=== PATIENT | male | born 1995 | race Caucasian/White ===

== ENCOUNTER 2016-12-29 14:58 | Emergency (ER) | payer OTHER ==
--- NOTE | 2016-12-29 15:42 | EDDOCDS ---
Physician Documentation [facility] Name: Aurelio Moseley Age: 21 yrs Sex: Male : 1995 Arrival Date: 12/29/2016 Time: 14:58 Bed I6 Private MD: NO PRIMARY PHYSICIAN, . Disposition: 12/29/16 15:35 Discharged to Home/Self Care. Impression: Dislocation and sprain of joints and ligaments of shoulder girdle - LEFT shoulder. - Condition is Stable. - Discharge Instructions: Shoulder Dislocation, [id number]. - Medication Reconciliation, Local Pharmacy Hours form. - Follow up: Orthopaedics, [facility]; When: Call to arrange an appointment; Reason: Further diagnostic work-up, Recheck today's complaints, Continuance of care. - Problem is new. - Symptoms have improved. Historical: - Allergies: PENICILLINS; - Home Meds: 1. none - PMHx: shoulder dislocation; - PSHx: Tubes in ears; right knee surgery; lumbar tumor removed; - Social history: Smoking status: Chewing Tobacco Patient/guardian denies using alcohol, street drugs, No barriers to communication noted, The patient speaks fluent Welsh, Speaks appropriately for age. - : The pt / caregiver states he / she is not on anticoagulants. Home medication list is obtained from the patient. - Exposure Risk Screening:: None identified. Vital Signs: 12/29 15:00 BP 158 / 88; Pulse 86; Resp 17; Temp 97.8(T); Pulse Ox 100% on R/A; Weight 97.52 kg / lr2 214.99 lbs (R); Height 5 ft. 10 in. (177.80 cm) (R); Pain 6/10; 15:00 Body Mass Index 30.85 (97.52 kg, 177.80 cm) lr2 Procedures: 15:27 Joint Reduction: of the left shoulder, using traction, Immobilized with sling, Patient btw tolerated well. Post reduction film - reveals normal alignment. MDM: 15:08 Shoulder, Complete Ordered. EDMS 15:33 Sling ordered. btw Signatures: Dispatcher [employer] EDMS Gregorio Lyman RN RN Martin Maddox PA PA btw Mariangel Dueñas RN RN ttb MTDD
--- NOTE | 2016-12-29 15:42 | EDDOCDS ---
Nurse's Notes [facility] Name: Aurelio Moseley Age: 21 yrs Sex: Male : 1995 Arrival Date: 12/29/2016 Time: 14:58 Bed I6 / 28 Private MD: NO PRIMARY PHYSICIAN, . Diagnosis: Dislocation and sprain of joints and ligaments of shoulder girdle-LEFT shoulder Presentation: 12/29 15:03 Presenting complaint: Patient states: left shoulder "dislocated" at work today. ttb Multiple times it has occurred per pt. Adult Sepsis Screening: The patient does not have new or worsening altered mentation. Patient's respiratory rate is less than 22. Systolic blood pressure is greater than 100. Patient has a qSOFA score of 0- Negative Sepsis Screen. Suicide/Homicide risk assessment- the patient denies having any suicidal and/or homicidal ideations and does not present with any other emotional, behavioral or mental health complaints. Status: Patient is not a personal care service provider or dependent. Transition of care: patient was not received from another setting of care. 15:03 Acuity: TONIA Level 3 ttb 15:03 Method Of Arrival: Walkin/Carried/Asstd ttb Triage Assessment: 15:06 General: Appears uncomfortable, well nourished, Behavior is appropriate for age, ttb cooperative, pleasant. Pain: Location: left shoulder Pain currently is 6 out of 10 on a pain scale. HIV screening NA for this visit Offered previously. Neurological: Level of Consciousness is awake, alert. Respiratory: No deficits noted. Airway is patent Respiratory effort is even, unlabored. Derm: Skin is normal. Musculoskeletal: Range of motion limited in left shoulder Denies numbness. Historical: - Allergies: PENICILLINS; - Home Meds: 1. none - PMHx: shoulder dislocation; - PSHx: Tubes in ears; right knee surgery; lumbar tumor removed; - Social history: Smoking status: Chewing Tobacco Patient/guardian denies using alcohol, street drugs, No barriers to communication noted, The patient speaks fluent Tongan, Speaks appropriately for age. - : The pt / caregiver states he / she is not on anticoagulants. Home medication list is obtained from the patient. - Exposure Risk Screening:: None identified. Screenin:41 Screening information is obtained from the patient. Fall risk: No risks identified. cyndik Assistance ADL's: requires no assistance with activities of daily living. Abuse/DV Screen: The patient / caregiver reports he/she is: not in a situation that causes fear, pain or injury. Nutritional screening: No deficits noted. Advance Directives: Currently, there is no health care proxy. There is no active DNR order. There is no living will. There is no Power of Research Scientist. Advance directive information has not previously been placed in an [facility] medical record. Further advance directive information is declined. home support is adequate. Assessment: 15:29 General: Appears in no apparent distress, manipulation of arm has been accomplished and jmk tolerated well. reports less pain. pulse is intact and cadmium liquor maker less than 2 sec.. 15:40 General: Appears arm sling applied and concepción well. 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 k Vital Signs: 15:00 BP 158 / 88; Pulse 86; Resp 17; Temp 97.8(T); Pulse Ox 100% on R/A; Weight 97.52 kg lr2 (R); Height 5 ft. 10 in. (177.80 cm) (R); Pain 6/10; 15:00 Body Mass Index 30.85 (97.52 kg, 177.80 cm) lr2 Vitals: 15:00 Log In Time: December 29, 2016 at 14:58. lr2 ED Course: 14:59 Patient visited by Marlyn Odell. lr2 14:59 Patient moved to Waiting lr2 15:00 NO PRIMARY PHYSICIAN, . is Private Physician. lr2 15:00 Patient moved to Pre RCE lr2 15:04 Triage Initiated ttb 15:07 Patient visited by Mariangel Dueñas RN. ttb 15:07 Patient moved to I6 / ttb 15:08 Martin Garcia PA is PHCP. btw 15:08 Alexa Ley MD is Attending Physician. btw 15:08 Patient visited by Martin Garcia PA. btw 15:30 Patient visited by Gregorio Lyman RN. jmk 15:[facility] btw 15:41 The patient / caregiver is instructed regarding the plan of care and ED course. jmk 15:41 No IV's were initiated during this patient's visit. No procedures done that require jmk assistance. Order Results: There are currently no results for this order. Outcome: 15:35 Discharge ordered by Provider. btw 15:41 Discharge Assessment: Patient awake, alert and oriented x 3. No cognitive and/or jmk functional deficits noted. Patient verbalized understanding of disposition instructions. Discharge Assessment: patient administered narcotics - no. The following High Risk Discharge criteria are identified: None. Discharged to home ambulatory. Condition: good. Discharge instructions given to patient, Instructed on discharge instructions, follow up and referral plans. Demonstrated understanding of instructions, medications, Pt was receptive of discharge instructions/ teaching. No special radiology studies were completed. Property :Personal belongings accompany Pt. 15:42 Patient left the ED. tiera Signatures: Gregorio LymanRN RN Martin Maddox PA PA btw Conner, Teresa RN RN Marlyn Mason2 MTDYanique
--- NOTE | 2016-12-29 15:59 | REP ---
Left shoulder series: Three views: History: History of dislocation. Comparison left shoulder radiographs are from 06/19/2016. Findings: The left glenohumeral and acromioclavicular joints are normally aligned. There is periarticular soft tissue density adjacent to the acromion process unchanged from the June 2016 prior study. There is no evidence of fracture or subluxation. No erosive changes seen. Impression: Soft-tissue calcification adjacent to the acromion process unchanged from comparison study. Calcific tendonitis or bursitis. No other acute abnormality. Normal alignment. Signed by Layo Tenorio MD 12/29/2016 04:24 P
--- NOTE | 2016-12-31 16:43 | EDDOCDS ---
Nurse's Notes [facility] Name: Aurelio Moseley Age: 21 yrs Sex: Male : 1995 Arrival Date: 12/29/2016 Time: 14:58 Bed I6 / 28 Private MD: NO PRIMARY PHYSICIAN, . Diagnosis: Dislocation and sprain of joints and ligaments of shoulder girdle-LEFT shoulder Presentation: 12/29 15:03 Presenting complaint: Patient states: left shoulder "dislocated" at work today. ttb Multiple times it has occurred per pt. Adult Sepsis Screening: The patient does not have new or worsening altered mentation. Patient's respiratory rate is less than 22. Systolic blood pressure is greater than 100. Patient has a qSOFA score of 0- Negative Sepsis Screen. Suicide/Homicide risk assessment- the patient denies having any suicidal and/or homicidal ideations and does not present with any other emotional, behavioral or mental health complaints. Status: Patient is not a electric range servicer or dependent. Transition of care: patient was not received from another setting of care. 15:03 Acuity: TONIA Level 3 ttb 15:03 Method Of Arrival: Walkin/Carried/Asstd ttb Triage Assessment: 15:06 General: Appears uncomfortable, well nourished, Behavior is appropriate for age, ttb cooperative, pleasant. Pain: Location: left shoulder Pain currently is 6 out of 10 on a pain scale. HIV screening NA for this visit Offered previously. Neurological: Level of Consciousness is awake, alert. Respiratory: No deficits noted. Airway is patent Respiratory effort is even, unlabored. Derm: Skin is normal. Musculoskeletal: Range of motion limited in left shoulder Denies numbness. Historical: - Allergies: PENICILLINS; - Home Meds: 1. none - PMHx: shoulder dislocation; - PSHx: Tubes in ears; right knee surgery; lumbar tumor removed; - Social history: Smoking status: Chewing Tobacco Patient/guardian denies using alcohol, street drugs, No barriers to communication noted, The patient speaks fluent Brazilian, Speaks appropriately for age. - : The pt / caregiver states he / she is not on anticoagulants. Home medication list is obtained from the patient. - Exposure Risk Screening:: None identified. Screenin:41 Screening information is obtained from the patient. Fall risk: No risks identified. cyndik Assistance ADL's: requires no assistance with activities of daily living. Abuse/DV Screen: The patient / caregiver reports he/she is: not in a situation that causes fear, pain or injury. Nutritional screening: No deficits noted. Advance Directives: Currently, there is no health care proxy. There is no active DNR order. There is no living will. There is no Power of Duct Installer. Advance directive information has not previously been placed in an [facility] medical record. Further advance directive information is declined. home support is adequate. Assessment: 15:29 General: Appears in no apparent distress, manipulation of arm has been accomplished and jmk tolerated well. reports less pain. pulse is intact and senior analyst programmer less than 2 sec.. 15:40 General: Appears arm sling applied and concepción well. 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 k Vital Signs: 15:00 BP 158 / 88; Pulse 86; Resp 17; Temp 97.8(T); Pulse Ox 100% on R/A; Weight 97.52 kg lr2 (R); Height 5 ft. 10 in. (177.80 cm) (R); Pain 6/10; 15:00 Body Mass Index 30.85 (97.52 kg, 177.80 cm) lr2 Vitals: 15:00 Log In Time: December 29, 2016 at 14:58. lr2 ED Course: 14:59 Patient visited by Marlyn Odell. lr2 14:59 Patient moved to Waiting lr2 15:00 NO PRIMARY PHYSICIAN, . is Private Physician. lr2 15:00 Patient moved to Pre RCE lr2 15:04 Triage Initiated ttb 15:07 Patient visited by Mariangel Dueñas RN. ttb 15:07 Patient moved to I6 / ttb 15:08 Martin Garcia PA is PHCP. btw 15:08 Alexa Ley MD is Attending Physician. btw 15:08 Patient visited by Martin Garcia PA. btw 15:30 Patient visited by Gregorio Lyman RN. jmk 15:33 [facility]. btw 15:41 The patient / caregiver is instructed regarding the plan of care and ED course. jmk 15:41 No IV's were initiated during this patient's visit. No procedures done that require jmk assistance. 15:52 Patient name changed from Aurelio\\S\\\\S\\Moseley\\S\\ to Aurelio\\S\\Loco\\S\\Moseley. EDMS 15:55 [facility] [place] Payment Agreement was scanned into [employer] and attached to record. lg 16:45 Shoulder, Complete Returned. EDMS 12/30 11:51 T-Sheet-- Draft Copy was scanned into [employer] and attached to record. gb Order Results: Radiology Order: Shoulder, Complete Test: Shoulder, Complete REASON FOR EXAMINATION: left, hx of dislocation; Left shoulder series: Three views:; ; History: History of dislocation.; ; Comparison left shoulder radiographs are from 06/19/2016.; ; Findings: The left glenohumeral and acromioclavicular joints are normally; aligned. There is periarticular soft tissue density adjacent to the acromion; process unchanged from the June 2016 prior study. There is no evidence of; fracture or subluxation. No erosive changes seen.; ; Impression:; ; Soft-tissue calcification adjacent to the acromion process unchanged from; comparison study. Calcific tendonitis or bursitis. No other acute abnormality.; Normal alignment.; ; ; Signed by; Layo Tenorio MD 12/29/2016 04:24 P; Outcome: 12/29 15:35 Discharge ordered by Provider. btw 15:41 Discharge Assessment: Patient awake, alert and oriented x 3. No cognitive and/or k functional deficits noted. Patient verbalized understanding of disposition instructions. Discharge Assessment: patient administered narcotics - no. The following High Risk Discharge criteria are identified: None. Discharged to home ambulatory. Condition: good. Discharge instructions given to patient, Instructed on discharge instructions, follow up and referral plans. Demonstrated understanding of instructions, medications, Pt was receptive of discharge instructions/ teaching. No special radiology studies were completed. Property :Personal belongings accompany Pt. 15:42 Patient left the ED. tiera Signatures: [facility] Gregorio Lyman,RN RN Luann Reyna, Reg Reg gb Silvestre Macias, Reg Reg lg Martin Garcia PA PA btw Conner, Teresa, Marlyn Bernstein RN Chart Complete MTDD
--- NOTE | 2016-12-31 16:43 | EDDOCDS ---
Physician Documentation [facility] Name: Aureilo Moseley Age: 21 yrs Sex: Male : 1995 Arrival Date: 12/29/2016 Time: 14:58 Bed I6 / Private MD: NO PRIMARY PHYSICIAN, . Disposition: 12/29/16 15:35 Discharged to Home/Self Care. Impression: Dislocation and sprain of joints and ligaments of shoulder girdle - LEFT shoulder. - Condition is Stable. - Discharge Instructions: Shoulder Dislocation, [id number]. - Medication Reconciliation, Local Pharmacy Hours form. - Follow up: Orthopaedics, [facility]; When: Call to arrange an appointment; Reason: Further diagnostic work-up, Recheck today's complaints, Continuance of care. - Problem is new. - Symptoms have improved. Historical: - Allergies: PENICILLINS; - Home Meds: 1. none - PMHx: shoulder dislocation; - PSHx: Tubes in ears; right knee surgery; lumbar tumor removed; - Social history: Smoking status: Chewing Tobacco Patient/guardian denies using alcohol, street drugs, No barriers to communication noted, The patient speaks fluent Cymro, Speaks appropriately for age. - : The pt / caregiver states he / she is not on anticoagulants. Home medication list is obtained from the patient. - Exposure Risk Screening:: None identified. Vital Signs: 12/29 15:00 BP 158 / 88; Pulse 86; Resp 17; Temp 97.8(T); Pulse Ox 100% on R/A; Weight 97.52 kg / lr2 214.99 lbs (R); Height 5 ft. 10 in. (177.80 cm) (R); Pain 6/10; 15:00 Body Mass Index 30.85 (97.52 kg, 177.80 cm) lr2 Procedures: 15:27 Joint Reduction: of the left shoulder, using traction, Immobilized with sling, Patient btw tolerated well. Post reduction film - reveals normal alignment. MDM: 15:08 Shoulder, Complete Ordered. EDMS 15:33 Sling ordered. btw 15:55 [facility] Payment Agreement was scanned into [employer] and attached to record. lg 16:45 Financial registration complete. gjb 12/30 11:51 T-Sheet-- Draft Copy was scanned into [employer] and attached to record. gb Signatures: Dispatcher [employer] EDGregorio Marshall,RN RN jmk Luann Arce, Reg Reg gb Silvestre Macias, Reg Reg lg Martin Garcia PA PA btw Conner, Teresa, RN RN Gerda Denny The chart was reviewed and I authenticate all verbal orders and agree with the evaluation and treatment provided.Attachments: 12/29 15:55 [facility] [place] Payment Agreement lg 12/30 11:51 T-Sheet-- Draft Copy gb Chart Complete MTDD
--- NOTE | 2016-12-31 16:43 | EDDOCDS ---
Physician Documentation [facility] Name: Aurelio Moseley Age: 21 yrs Sex: Male : 1995 Arrival Date: 12/29/2016 Time: 14:58 Bed I6 / Private MD: NO PRIMARY PHYSICIAN, . Disposition: 12/29/16 15:35 Discharged to Home/Self Care. Impression: Dislocation and sprain of joints and ligaments of shoulder girdle - LEFT shoulder. - Condition is Stable. - Discharge Instructions: Shoulder Dislocation, [id number]. - Medication Reconciliation, Local Pharmacy Hours form. - Follow up: Orthopaedics, [facility]; When: Call to arrange an appointment; Reason: Further diagnostic work-up, Recheck today's complaints, Continuance of care. - Problem is new. - Symptoms have improved. Historical: - Allergies: PENICILLINS; - Home Meds: 1. none - PMHx: shoulder dislocation; - PSHx: Tubes in ears; right knee surgery; lumbar tumor removed; - Social history: Smoking status: Chewing Tobacco Patient/guardian denies using alcohol, street drugs, No barriers to communication noted, The patient speaks fluent Danish, Speaks appropriately for age. - : The pt / caregiver states he / she is not on anticoagulants. Home medication list is obtained from the patient. - Exposure Risk Screening:: None identified. Vital Signs: 12/29 15:00 BP 158 / 88; Pulse 86; Resp 17; Temp 97.8(T); Pulse Ox 100% on R/A; Weight 97.52 kg / lr2 214.99 lbs (R); Height 5 ft. 10 in. (177.80 cm) (R); Pain 6/10; 15:00 Body Mass Index 30.85 (97.52 kg, 177.80 cm) lr2 Procedures: 15:27 Joint Reduction: of the left shoulder, using traction, Immobilized with sling, Patient btw tolerated well. Post reduction film - reveals normal alignment. MDM: 15:08 Shoulder, Complete Ordered. EDMS 15:33 Sling ordered. btw 15:55 [facility] Payment Agreement was scanned into [employer] and attached to record. lg 16:45 Financial registration complete. gjb 12/30 11:51 T-Sheet-- Draft Copy was scanned into [employer] and attached to record. gb Signatures: Dispatcher [employer] EDGregorio Marshall,RN RN jmk Luann Arce, Reg Reg gb Silvestre Macias, Reg Reg lg Martin Garcia PA PA btw Conner, Teresa, RN RN Gerda Denny The chart was reviewed and I authenticate all verbal orders and agree with the evaluation and treatment provided.Attachments: 12/29 15:55 [facility] [place] Agreement lg 12/30 11:51 T-Sheet-- Draft Copy gb Chart Complete MTDD
== END 2016-12-29 15:42 | disposition home or self-care (01) ==
LOC: M ED 14:58
DX: S43.305A Dislocation of unspecified parts of left shoulder girdle, initial encounter (principal); Z72.0 Tobacco use; Z88.0 Allergy status to penicillin; X50.0XXA Overexertion from strenuous movement or load, initial encounter; Y92.019 Unspecified place in single-family (private) house as the place of occurrence of the external cause; Y93.89 Activity, other specified; Y99.9 Unspecified external cause status